=== PATIENT | female | born 1995 | race Caucasian/White ===

== ENCOUNTER → 2024-08-20 09:12 | Outpatient (CLI) | payer OTHER, SELFPAY ==
[2024-08-20 10:39] LABS: Prolactin 20.2 ng/mL (3.0-18.6)
[2024-08-20 10:40] LABS: Follicle Stimulating Hormone 7.39 mIU/mL; Luteinizing Hormone 51.9 mIU/mL
[2024-08-20 10:55] LABS: TSH w/ Reflex to FT4 2.08 uIU/mL (0.47-4.68)
[2024-08-20 10:56] LABS: Estradiol, Total 214.2 pg/mL
[2024-09-08 10:21] LABS: Testosterone Free 1.01; Testosterone Total 37.8
[2024-09-08 10:22] LABS: Percent Free Testosterone 2.67
== END ==
PROVIDERS: PCP Nurse Practitioner Family; Referring Provider Obstetrics & Gynecology; Visit Provider Obstetrics & Gynecology
DX: E28.2 Polycystic ovarian syndrome (principal)
CPT/HCPCS: 36415; 82627; 82670; 83001; 83002; 84146; 84402; 84403; 84443

== ENCOUNTER → 2025-08-04 08:19 | Outpatient (CLI) | payer OTHER, SELFPAY ==
--- NOTE | 2025-08-04 08:22 | DI.MRI.S_ITS ---
PROCEDURE: MR KNEE RT WO CON INDICATIONS: r/o meniscus tear TECHNIQUE: Noncontrast sagittal PD fast spin echo and T2 fast spin echo with fat saturation, sagittal 3-D FLASH with fat saturation; coronal T1 spin echo and PD fast spin echo with fat saturation, and axial PD fast spin echo with fat saturation through the knee. COMPARISON: [facility], CR, ORTHO-XR KNEE WB RIGHT, 08/03/2025, 7:56. FINDINGS: Image quality: Excellent. Anterior cruciate ligament: Intact. Posterior cruciate ligament: Intact. Medial collateral ligament: Intact. Lateral collateral ligament: Intact. Medial meniscus: Intact. Lateral meniscus: Intact. Medial and lateral tendons: The semimembranosus tendon insertions appear intact. Visualized portions of the pes anserinus tendons appear normal. The popliteus tendon is intact. Iliotibial band appears normal. Anterior structures: Mild patellar tendinosis. The distal quadriceps tendon is intact. No patellar subluxation. No femoral trochlear dysplasia or ventral trochlear prominence. Mild scarring in the infrapatellar fat pad. Bones: No bone marrow contusions or fractures. Medial femorotibial cartilage: Intact. Lateral femorotibial cartilage: Intact. Patellofemoral cartilage: Intact. Soft tissues: Intermediate intensity oval lesion is seen in the anterior intercondylar notch adjacent to the distal anterior cruciate ligament measuring approximately the 14 x 8 x 11 mm. No susceptibility artifact is seen on gradient echo sequence. No additional intra-articular lesion. Small knee joint fluid. Trace medial popliteal cyst. The musculature surrounding the knee is normal in bulk. IMPRESSION: 1. Oval intermediate intensity filling defect in the anterior intercondylar notch measuring up to 14 mm. Differential considerations include intra-articular tenosynovial giant cell tumor (PVNS), focal synovial hypertrophy, proteinaceous pericruciate cyst, arthrofibrosis, or less likely a cartilaginous loose body. 2. Cruciate and collateral ligaments are intact. No acute trabecular bone injury. No meniscal tear or focal cartilage defect. 3. Mild patellar tendinosis. 4. Small joint effusion. Approved by: Feroz Baron M.D. on 08/04/2025 at 10:45
== END ==
PROVIDERS: PCP Nurse Practitioner Family; Referring Provider Nurse Practitioner Family; Visit Provider Orthopaedic Surgery
DX: S86.911A Strain of unspecified muscle(s) and tendon(s) at lower leg level, right leg, initial encounter (principal); M25.461 Effusion, right knee; M67.961 Unspecified disorder of synovium and tendon, right lower leg; X58.XXXA Exposure to other specified factors, initial encounter
CPT/HCPCS: 73721